=== PATIENT | male | born 1945 | race African-American/Black ===

== ENCOUNTER → 2016-12-19 08:45 | Day surgery (SDC) | payer MEDICARE ==
[~2016-12-19 08:45] MED LIST: Lidocaine 2% EPI 1:200000 MPF* 20 ML VIAL ONE; Sodium Bicarbonate 8.4% SYR* 10 ML SYRINGE ONE; Sodium Citrate/Citric Acid* 15 ML UDC ONE
[2016-12-19 12:04] VITALS: BP 135/71
--- NOTE | 2016-12-20 06:22 | OP ---
DATE OF OPERATION: 12/19/16 [facility] DATE OF : 47 SURGEON: Praveen Lal MD POSITIVE PRINTER OPERATOR: None. ANESTHESIOLOGIST: None. ANESTHESIA: Local only with 2% lidocaine with epinephrine and bicarbonate. PRE-OP DIAGNOSIS: Right carpal tunnel syndrome. POST-OP DIAGNOSIS: Right carpal tunnel syndrome. OPERATIVE PROCEDURE: Right open carpal tunnel release. INDICATIONS: Jon has had progressive right carpal tunnel syndrome symptoms. Electrodiagnostic studies confirmed disease. He has failed nonoperative treatment. We talked about risks and benefits. He elected to proceed. FINDINGS: As expected. EBL: 5 mL. COMPLICATIONS: None. DESCRIPTION OF PROCEDURE: Jon was seen in the preoperative holding area. The correct site, side, and procedure were identified. We had a time-out. Then , I injected the area with 2% lidocaine with epinephrine and bicarbonate. We then came back to the operating room and the arm was prepped and draped in the usual fashion and a formal time-out was performed. I made a 2-cm to 3-cm incision longitudinally in the proximal palm in the standard location for an open carpal tunnel release. Dissection was carried down through the subcutaneous tissue and palmar fascia, which was incised longitudinally. The transverse carpal ligament was then visualized and was released just off the radial aspect of the hook of the hamate. I used the tenotomy scissors to complete the release distally. I then placed a Reinaldo retractor and retracted the skin and subcutaneous tissue superficially and ulnarly and under direct visualization, I released the rest of the transverse carpal ligament and distal antebrachial fascia to a level a few centimeters proximal to the volar wrist flexion crease. I then checked the decompression proximally and distally. Everything was very nicely decompressed. There was absolutely no pressure on the nerve. I, therefore, went ahead and irrigated out the wound, and skin was closed with some 4-0 nylon sutures. The wound was then dressed with Xeroform, 4x4's, sterile Webril, and an Peterson wrap. He was then taken to the recovery room in stable condition. [id number] #: [id number] MTDD
== END | disposition home or self-care (01) ==
LOC: OREAST 08:45
PROVIDERS: ATTEND Orthopaedic Surgery Hand Surgery
DX: G56.01 Carpal tunnel syndrome, right upper limb (principal); Z87.891 Personal history of nicotine dependence
CPT/HCPCS: A9270-GY

== ENCOUNTER 2017-01-16 10:01 | Day surgery (SDC) | payer MEDICARE ==
[~2017-01-16 10:01] MED LIST changes: +Lidocain 1% EPI 1:100,000 * 30 ML MDV ONE; -Lidocaine 2% EPI 1:200000 MPF* 20 ML VIAL ONE; -Sodium Bicarbonate 8.4% SYR* 10 ML SYRINGE ONE; -Sodium Citrate/Citric Acid* 15 ML UDC ONE
[2017-01-16] MEDS ORDERED: Bupivacaine 0.25% SDV* 30 ML ONE (13:45)
[2017-01-16 15:05] VITALS: BP 146/81
--- NOTE | 2017-01-17 02:06 | OP ---
DATE OF OPERATION: 01/16/17 [facility] DATE OF : 47 SURGEON: Praveen Lal MD PROPERTY FIELD ADJUSTER: BOBBY Wilson ANESTHESIOLOGIST: None. ANESTHESIA: Local only with 1% lidocaine with epinephrine and bicarbonate. PRE-OP DIAGNOSIS: Left carpal tunnel syndrome. POST-OP DIAGNOSIS: Left carpal tunnel syndrome. OPERATIVE PROCEDURE: Left open carpal tunnel release. INDICATIONS: Jon is a 71-year-old gentleman with carpal tunnel syndrome on the left. I had previously released the right carpal tunnel release and he has done absolutely great with that. The left hand continues to wake him up at night and is significantly symptomatic despite trial of night bracing and nonoperative treatment. We talked about risk and benefit and he elected to proceed with left carpal tunnel release. ESTIMATED BLOOD LOSS: 5 mL. COMPLICATIONS: None. FINDINGS: As expected. DESCRIPTION OF PROCEDURE: Jon was seen in the preoperative holding area and the correct side, site, and procedure were identified. I infiltrated the operative area with 1% lidocaine with epinephrine and bicarbonate. We then came back to the operating room where the arm was prepped and draped in the usual fashion and a formal time-out was performed. I began by making a longitudinal incision 2 to 3 cm in length in standard location for an open carpal tunnel release. Dissection was carried down through the subcutaneous tissue to the palmar fascia. This was divided longitudinally to expose the transverse carpal ligament. I then started to release distally and released the transverse carpal ligament just off the radial aspect of the hook of the hamate to the level of proximal aspect of the incision. Once I got to this area, I released subcutaneous tissue and retracted this ulnarly and superficially. Under direct visualization, I used a tenotomy scissor to release the remainder of the transverse carpal ligament and the distal antebrachial fascia to a level several centimeters proximal to the volar wrist flexion crease. I released just off the ulnar aspect of the palmaris longus tendon. I then checked decompression and there was an excellent decompression proximally and distally. There was absolutely no compression on the nerve. I therefore irrigated the wound and the skin was closed with 4-0 nylon horizontal mattress sutures. I then infiltrated the operative area with 8 mL of 0.25% Marcaine. The wound was dressed with Xeroform , 4x4's, sterile Webril, and an Peterson bandage. He was then taken to recovery room in stable condition. [id number] #: [id number] ZAKIA
== END 2017-01-16 15:10 | disposition home or self-care (01) ==
LOC: OREAST 10:01
PROVIDERS: ATTEND Orthopaedic Surgery Hand Surgery
DX: G56.02 Carpal tunnel syndrome, left upper limb (principal); Z87.891 Personal history of nicotine dependence